=== PATIENT | male | born 1950 | race Caucasian/White ===

== ENCOUNTER 2022-04-10 23:38 | Observation (INO) | payer MEDICARE ==
[~2022-04-10 23:38] MED LIST: Iopamidol-370 76% 500 ML 1 ML ONE
[2022-04-10 23:53] LABS: #Eosinphils 0.2 thou/uL (0.0-0.7); #Lymphocytes 0.9 thou/uL (1.20-3.40); #Monocytes 0.9 thou/uL (0.11-0.59); #Neutrophils 9.1 thou/uL (1.40-6.50); %Basophils 0.4 % (0.0-1.0); %Eosinophils 1.5 % (0.0-10.0); %Lymphocytes 7.8 % (21.0-51.0); %Monocytes 7.7 % (0.0-10.0); %Neutrophils 82.6 % (42.0-75.0); Hemoglobin 13.2 g/dL (14.0-18.0); Mean Corpuscular HGB CONC 34.2 g/dL (32.0-36.0); Mean Corpuscular Hemoglobin 33.5 pg (27.0-31.0); Mean Corpuscular Volume 97.9 fL (78.0-98.0); Platelet Count 183 thou/uL (130-400); RBC Distribution Width 13.5 % (11.5-14.5); Red Blood Cell (RBC) Count 3.95 mill/uL (4.70-6.10); White Blood Cell (WBC) Count 11.1 thou/uL (4.8-10.8)
[2022-04-11 00:02] LABS: INR-International Normal Ratio 1.2; PTT 25.5 sec (22.9-36.1); Prothrombin Time 15.1 sec (12.0-14.7)
[2022-04-11 00:14] LABS: ALT (SGPT) 54 U/L (8-55); AST (SGOT) 100 U/L (5-34); Albumin 3.3 g/dL (3.4-4.8); Alkaline Phosphatase 85 U/L (40-110); Anion Gap 11 mmol/L (10-20); BUN (Urea Nitrogen) 10 mg/dL (8.4-25.7); Bilirubin, Total 0.3 mg/dL (0.2-1.2); Calc. Creatinine Clearance 0 mL/min (70-130); Carbon Dioxide 24 mmol/L (23-31); Chloride 108 mmol/L (98-107); Estimated GFR 69; Globulin 2.6 g/dL (2.4-3.5); Glucose 137 mg/dL (80-115); Lipase 49 U/L (8-78); Magnesium 1.6 mg/dL (1.6-2.6); Potassium 3.4 mmol/L (3.5-5.1); Protein, Total 5.9 g/dL (5.8-8.1); Sodium 140 mmol/L (136-145)
[2022-04-11 00:18] LABS: Acetaminophen Less than 10.0 mcg/mL (10.0-30.0); Alcohol 178 mg/dL (Less than 10); Salicylate Less than 8.0 mg/dL (15.0-30.0)
[2022-04-11] MEDS ORDERED: Fentanyl 100 MCG/2 ML VIAL ONE (00:22)
[2022-04-11] MEDS ORDERED: Tranexamic Acid 1,000 MG/10 ML VIAL ONE (00:38)
[2022-04-11 01:11] LABS: Bacteria/HPF None Seen HPF (None Seen); Bilirubin Negative (Negative); Blood, Urine 1+ (Negative); Clarity Clear (Clear); Glucose, Urine (Dipstick) Normal (Negative); Ketone, Urine Negative (Negative); Leukocyte Negative Leu/uL (Negative); Nitrite Negative (Negative); Protein, Urine (Dipstick) Negative (Neg-Trace); RBC/HPF 0-3 HPF (0-3); Specific Gravity, Urine 1.017 (1.002-1.036); Squamous Epithelial None Seen HPF (0-3); Urobilinogen Normal mg/dL (Less than 2); WBC/HPF 0-3 HPF (0-3)
[2022-04-11 01:18] LABS: Amphetamine Not Detected (NotDetected); Barbiturates Screen Not Detected (NotDetected); Benzodiazepine Screen Not Detected (NotDetected); Cocaine Metabolite Screen Not Detected (NotDetected); Methadone Not Detected (NotDetected); Methamphetamine Not Detected (NotDetected); Opiate Screen Not Detected (NotDetected); Oxycodone Screen Not Detected (NotDetected); Phencyclidine (PCP) Not Detected (NotDetected); THC/Cannabinoid Screen Not Detected (NotDetected); Tricyclic Screen Not Detected (NotDetected)
[2022-04-11] MEDS ORDERED: Lidocaine 1% MPF 2 ML VIAL ONE (01:29)
[2022-04-11] MEDS ORDERED: Ondansetron ODT 4 MG TAB PO PRN (01:41)
[2022-04-11] MEDS ORDERED: Promethazine HCl 25 MG/ML VIAL IM PRN (01:41)
[2022-04-11] MEDS ORDERED: Ibuprofen 200 MG TAB PO PRN (01:44)
[2022-04-11] MEDS ORDERED: Lactated Ringer's 1,000 ML IV SCH ×2 (01:45→06:00)
[2022-04-11] MEDS ORDERED: Magnesium 2 GM/50 ML(in water) 2 GM in Premix Bag 1 BAG IVPB SCH (02:30)
[2022-04-11] MEDS ORDERED: Potassium Chloride 20 MEQ in Premix Bag 1 BAG IVPB SCH (02:45)
[2022-04-11] MEDS ORDERED: Magnesium 2 GM/50 ML BAG (IN WATER) ONE (04:07)
[2022-04-11] MEDS ORDERED: Potassium Chloride 20 MEQ/100 ML PREMIX BAG ONE (04:07)
[2022-04-11 05:28] LABS: Lactic Acid 3.5 mmol/L (0.5-2.2)
[2022-04-11 06:13] LABS: Anion Gap 13 mmol/L (10-20); BUN (Urea Nitrogen) 9 mg/dL (8.4-25.7); Calc. Creatinine Clearance 0 mL/min (70-130); Calcium 8.2 mg/dL (7.8-10.44); Carbon Dioxide 22 mmol/L (23-31); Chloride 106 mmol/L (98-107); Estimated GFR 95; Glucose 129 mg/dL (80-115); Potassium 3.4 mmol/L (3.5-5.1); Sodium 138 mmol/L (136-145)
[2022-04-11 07:18] LABS: SARS-CoV-2 NAA Rapid Test Not Detected (NotDetected)
[2022-04-11] MEDS ORDERED: Potassium Chloride 20 MEQ TAB PO SCH (07:45)
[2022-04-11 07:57] LABS: #Lymphocytes 1.1 thou/uL (1.20-3.40); #Monocytes 0.9 thou/uL (0.11-0.59); #Neutrophils 6.9 thou/uL (1.40-6.50); %Basophils 0.4 % (0.0-1.0); %Eosinophils 0.5 % (0.0-10.0); %Lymphocytes 12.1 % (21.0-51.0); %Monocytes 9.8 % (0.0-10.0); %Neutrophils 77.2 % (42.0-75.0); Hemoglobin 14.7 g/dL (14.0-18.0); Mean Corpuscular HGB CONC 34.3 g/dL (32.0-36.0); Mean Corpuscular Hemoglobin 33.7 pg (27.0-31.0); Mean Corpuscular Volume 98.2 fL (78.0-98.0); Mean Platelet Volume 6.9 fL (7.4-10.4); Platelet Count 161 thou/uL (130-400); RBC Distribution Width 13.6 % (11.5-14.5); Red Blood Cell (RBC) Count 4.35 mill/uL (4.70-6.10); White Blood Cell (WBC) Count 8.9 thou/uL (4.8-10.8)
[2022-04-11 08:59] LABS: Phosphorus 1.7 mg/dL (2.3-4.7)
[2022-04-11] MEDS ORDERED: Folic Acid 1 MG TAB PO SCH (09:00)
[2022-04-11] MEDS ORDERED: Famotidine 20 MG TAB PO SCH (09:00)
[2022-04-11] MEDS ORDERED: Thiamine 100 MG TAB PO SCH (09:00)
[2022-04-11] MEDS ORDERED: Famotidine 20 MG TAB ONE (09:41)
[2022-04-11] MEDS ORDERED: Acetaminophen 325 MG TAB ONE ×2 (09:42→14:48)
[2022-04-11] MEDS ORDERED: Folic Acid 1 MG TAB ONE (09:42)
[2022-04-11] MEDS ORDERED: Thiamine 100 MG TAB ONE (09:42)
[2022-04-11] MEDS ORDERED: Potassium Chloride 20 MEQ TAB ONE (09:43)
[2022-04-11] MEDS: Acetaminophen 325 MG TAB PO SCH ×2 (09:45→14:51)
[2022-04-11] MEDS: Oxazepam 10 MG CAP PO SCH ×2 (09:45→14:51)
[2022-04-11] MEDS ORDERED: Metoprolol Tartrate 25 MG TAB PO SCH ×3 (11:45→21:00)
[2022-04-11] MEDS ORDERED: Metoprolol Tartrate 25 MG TAB ONE (11:51)
[2022-04-11 14:52] VITALS: BP 155/89; TEMP 98.5
[2022-04-12] MEDS ORDERED: DILTIAZEM HCL 120 MG PO SCH (09:00)
== END 2022-04-11 18:09 | disposition home or self-care (01) ==
LOC: ERS 23:38 → ERHOLD 04-11 01:43
PROVIDERS: ADMIT Surgery; ATTEND Surgery
DX: S27.329A Contusion of lung, unspecified, initial encounter (principal); R07.9 Chest pain, unspecified; F10.129 Alcohol abuse with intoxication, unspecified; I95.9 Hypotension, unspecified; E87.2 Acidosis; S01.21XA Laceration without foreign body of nose, initial encounter; E87.6 Hypokalemia; E83.42 Hypomagnesemia; I48.91 Unspecified atrial fibrillation; M10.9 Gout, unspecified; E78.5 Hyperlipidemia, unspecified; I11.0 Hypertensive heart disease with heart failure; I50.9 Heart failure, unspecified; F17.220 Nicotine dependence, chewing tobacco, uncomplicated; S81.032A Puncture wound without foreign body, left knee, initial encounter; M47.812 Spondylosis without myelopathy or radiculopathy, cervical region; M48.02 Spinal stenosis, cervical region; J98.11 Atelectasis; K74.60 Unspecified cirrhosis of liver; K57.30 Diverticulosis of large intestine without perforation or abscess without bleeding; M17.12 Unilateral primary osteoarthritis, left knee; Z86.73 Personal history of transient ischemic attack (TIA), and cerebral infarction without residual deficits; Z79.82 Long term (current) use of aspirin; Z79.899 Other long term (current) drug therapy; Z20.822 Contact with and (suspected) exposure to COVID-19; V58.5XXA Driver of pick-up truck or van injured in noncollision transport accident in traffic accident, initial encounter; Y92.413 State road as the place of occurrence of the external cause; Y90.6 Blood alcohol level of 120-199 mg/100 ml
CPT/HCPCS: 70450; 71045; 71260; 72125; 73560; 73590; 74177; 80048; 80053; 80306; 80307; 83605 ×2; 83690; 83735 ×2; 84100; 84484; 85025 ×2; 85610; 85730; 86850; 86900; 86901; 93005; 96375; G0378; U0002; 36415; 81003; 81015; G0390; J3010; J3475; J3480; J7120; Q9967